=== PATIENT | female | born 1945 | race Caucasian/White ===

== ENCOUNTER 2020-12-07 16:05 | Observation (INO) | payer OTHER, MEDICAID, SELFPAY ==
[~2020-12-07] VITALS: Ht 152.4 cm; Wt 62.6 kg
[2020-12-07 16:06] VITALS: BP_SYST 162
[2020-12-07 17:25] LABS: BASOPHILS # (AUTO) 0.1 K/uL (0.0-0.2); BASOPHILS % (AUTO) 1.4 % (0.0-2.0); EOSINOPHILS # (AUTO) 0.1 K/uL (0.0-0.4); EOSINOPHILS % (AUTO) 2.3 % (0.0-4.0); HEMATOCRIT 39.2 % (36-48); HEMOGLOBIN 12.5 g/dL (12.0-16.0); LYMPHOCYTES # (AUTO) 0.7 K/uL (1.0-5.5); MEAN CORPUSCULAR HEMOGLOBIN 33 pg (27-31); MEAN CORPUSCULAR HGB CONC 32 % (32-36); MEAN CORPUSCULAR VOLUME 104 fL (79.0-98.0); MONOCYTES # (AUTO) 0.4 K/uL (0.0-1.0); NEUTROPHILS # (AUTO) 3.2 K/uL (1.8-7.7); NEUTROPHILS % (AUTO) 71.3 % (40.0-70.0); PLATELET COUNT (AUTO) 140 K/uL (130-430); RED BLOOD CELL COUNT(AUTO) 3.77 MIL/uL (4.2-6.2); RED CELL DISTRIBUTION WIDTH 15.5 % (9.0-15.0); WHITE BLOOD COUNT (AUTO) 4.5 K/uL (4.8-10.8)
[2020-12-07 18:03] LABS: ANION GAP 8 (5-15); CALCIUM 9.2 mg/dL (8.4-11.0); CHLORIDE 107 mmol/L (98-107); CREATININE 0.79 mg/dL (0.55-1.30); GLUCOSE 236 mg/dL (70-99); POTASSIUM 3.9 mmol/L (3.5-5.1); SODIUM SERUM 144 mmol/L (136-145); UREA NITROGEN, BLOOD 14 mg/dL (8-21)
[2020-12-07 18:07] LABS: ALANINE AMINOTRANSFERASE 39 U/L (12-78); ALBUMIN 3.1 g/dL (3.4-4.8); ASPARTATE AMINOTRANSFERASE 45 U/L (10-37); TOTAL BILIRUBIN 0.6 mg/dL (0.0-1.0)
[2020-12-07] MEDS ORDERED: LORazepam 2 MG/ML VIAL IM ONE (18:30)
[2020-12-07] MEDS ORDERED: DIPHENHYDRAMINE INJ 50 MG/ML VIAL IM ONE (18:30)
[2020-12-07] MEDS ORDERED: HALOPERIDOL LACTATE 5 MG/ML VIAL IM ONE (18:30)
[2020-12-08] MEDS ORDERED: LORazepam 2 MG/ML VIAL IVP PRN (10:30)
[2020-12-08 11:19] VITALS: BP_SYST 134
[2020-12-08 11:20] VITALS: BP_SYST 134
[2020-12-08] MEDS ORDERED: HALOPERIDOL LACTATE 5 MG/ML VIAL IM PRN (14:00)
[2020-12-08] MEDS: QUEtiapine FUMARATE 25 MG TABLET PO SCH ×2 (15:00→21:00)
[2020-12-08] MEDS ORDERED: LORazepam 2 MG/ML VIAL IM PRN (16:45)
[2020-12-08] MEDS ORDERED: ACETAMINOPHEN 325 MG TABLET PO PRN (17:45)
[2020-12-08] MEDS ORDERED: ONDANSETRON HCL 4 MG/2 ML VIAL IVP PRN (17:45)
[2020-12-08 18:20] VITALS: BP_SYST 117
[2020-12-08 20:00] VITALS: BP_SYST 126
[2020-12-08] MEDS: NORMAL SALINE 5 ML DISP.SYRIN IVF SCH (22:00)
[2020-12-08] MEDS ORDERED: NORMAL SALINE 5 ML DISP.SYRIN IVF SCH (22:00)
[2020-12-09 00:30] VITALS: BP_SYST 99
[2020-12-09 01:04] VITALS: BP_SYST 116
[2020-12-09 06:56] LABS: BASOPHILS % (AUTO) 0.6 % (0.0-2.0); EOSINOPHILS # (AUTO) 0.2 K/uL (0.0-0.4); EOSINOPHILS % (AUTO) 2.8 % (0.0-4.0); HEMATOCRIT 38.2 % (36-48); HEMOGLOBIN 12.9 g/dL (12.0-16.0); LYMPHOCYTES # (AUTO) 1.1 K/uL (1.0-5.5); MEAN CORPUSCULAR HEMOGLOBIN 35 pg (27-31); MEAN CORPUSCULAR HGB CONC 34 % (32-36); MEAN CORPUSCULAR VOLUME 103 fL (79.0-98.0); MONOCYTES # (AUTO) 0.7 K/uL (0.0-1.0); MONOCYTES % (AUTO) 12.3 % (1.7-9.3); NEUTROPHILS # (AUTO) 3.5 K/uL (1.8-7.7); NEUTROPHILS % (AUTO) 63.3 % (40.0-70.0); PLATELET COUNT (AUTO) 120 K/uL (130-430); RED BLOOD CELL COUNT(AUTO) 3.71 MIL/uL (4.2-6.2); RED CELL DISTRIBUTION WIDTH 15.1 % (9.0-15.0); WHITE BLOOD COUNT (AUTO) 5.4 K/uL (4.8-10.8)
[2020-12-09 07:40] LABS: ANION GAP 8 (5-15); CALCIUM 9.1 mg/dL (8.4-11.0); CHLORIDE 106 mmol/L (98-107); CREATININE 0.83 mg/dL (0.55-1.30); GLUCOSE 88 mg/dL (70-99); SODIUM SERUM 142 mmol/L (136-145); UREA NITROGEN, BLOOD 12 mg/dL (8-21)
[2020-12-09 08:30] VITALS: BP_SYST 148
[2020-12-09] MEDS: QUEtiapine FUMARATE 25 MG TABLET PO SCH ×3 (09:30→22:12)
[2020-12-09 12:00] VITALS: BP_SYST 124
[2020-12-09] MEDS: NORMAL SALINE 5 ML DISP.SYRIN IVF SCH ×2 (14:00→22:00)
[2020-12-09] MEDS ORDERED: FOLI-43 PO (14:03)
[2020-12-09] MEDS ORDERED: PRO40 PO (14:03)
[2020-12-09] MEDS ORDERED: LOSA50TA3 PO (14:03)
[2020-12-09] MEDS ORDERED: ARIP2TAB3 PO ×2 (14:03)
[2020-12-09] MEDS ORDERED: NOR10 PO (14:03)
[2020-12-09] MEDS ORDERED: LEVO25TA2 PO (14:03)
[2020-12-09] MEDS ORDERED: METO25TA3 PO (14:03)
[2020-12-09] MEDS ORDERED: COMMUNICATION ORDER XX ONE (14:15)
[2020-12-09 20:00] VITALS: BP_SYST 115
[2020-12-09] MEDS: RIVASTIGMINE TARTRATE 1.5 MG CAPSULE (EXELON) PO SCH (22:12)
[2020-12-10] VITALS: BP_SYST 99
[2020-12-10] MEDS: NORMAL SALINE 5 ML DISP.SYRIN IVF SCH ×4 (05:27→22:00)
[2020-12-10 08:00] VITALS: BP_SYST 131
[2020-12-10] MEDS: QUEtiapine FUMARATE 25 MG TABLET PO SCH ×3 (08:32→20:31)
[2020-12-10] MEDS: RIVASTIGMINE TARTRATE 1.5 MG CAPSULE (EXELON) PO SCH ×2 (08:32→20:31)
[2020-12-10] MEDS ORDERED: QUET50TA15 PO (14:58)
[2020-12-10 15:22] VITALS: BP_SYST 121
[2020-12-10 16:00] VITALS: BP_SYST 126
[2020-12-10 20:00] VITALS: BP_SYST 112
[2020-12-11 00:43] VITALS: BP_SYST 111
[2020-12-11] MEDS: NORMAL SALINE 5 ML DISP.SYRIN IVF SCH (05:05)
[2020-12-11 08:00] VITALS: BP_SYST 116
[2020-12-11] MEDS: RIVASTIGMINE TARTRATE 1.5 MG CAPSULE (EXELON) PO SCH (08:20)
[2020-12-11] MEDS: QUEtiapine FUMARATE 25 MG TABLET PO SCH (08:20)
[2020-12-11 10:08] VITALS: BP_SYST 116
== END 2020-12-11 11:05 ==
LOC: SED 16:05 → SMU 18:37 → INTOOBSV 18:37 → SMU 12-08 09:57
PROVIDERS: ADMIT Preventive Medicine Preventive Medicine/Occupational Environmental Medicine; ATTEND Preventive Medicine Preventive Medicine/Occupational Environmental Medicine
DX: F29 Unspecified psychosis not due to a substance or known physiological condition (principal); Z20.822 Contact with and (suspected) exposure to COVID-19; F03.91 Unspecified dementia, unspecified severity, with behavioral disturbance; E03.9 Hypothyroidism, unspecified; K21.9 Gastro-esophageal reflux disease without esophagitis; I10 Essential (primary) hypertension; Z78.9 Other specified health status; Z88.2 Allergy status to sulfonamides; Z88.0 Allergy status to penicillin; Z86.16 Personal history of COVID-19; Z79.899 Other long term (current) drug therapy
CPT/HCPCS: 36415 ×2; 80048; 80053; 85025 ×2; 87081; 87426; 96372; 99285; G0378 ×3; J1200; J1630; J2060; U0003

== ENCOUNTER 2021-08-07 13:54 | Emergency (ER) | payer OTHER, MEDICAID, SELFPAY ==
[~2021-08-07] VITALS: Ht 149.9 cm; Wt 54.4 kg
[~2021-08-07 13:54] MED LIST: ARIP2TAB3 PO; FOLI-43 PO; LEVO25TA2 PO; LOSA50TA3 PO; METO25TA3 PO; NOR10 PO; PRO40 PO; QUET50TA15 PO
[2021-08-07 14:00] VITALS: BP_SYST 121
--- NOTE | 2021-08-07 14:00 | NUR ---
Patient to ER bed 5 to gown for evaluation. Side rails up. Report given to Ada.
--- NOTE | 2021-08-07 14:06 | NUR ---
PT DAVID FROM [facility] FOR INCREASED AGITATION. PT AWAKE, ALERT, ORIENTED TO NAME, CONFUSED TO DATE AND PLACE. PT CALM, FOLLOWS SIMPLE COMMANDS, IN NAD. RESP EVEN AND UNLABORED, ON RA @96%. DENIES ANY CHEST PAIN OR SOB. SKIN W/D/I. VERBALIZES SHE'S COLD, BLANKETS PROVIDED. PER HISTORY, PT IS SCHIZOPHRENIC WITH DEMENTIA. MED LIST ON CHART, WAITING FOR DR JAMAAL IRBY.
--- NOTE | 2021-08-07 14:22 | NUR ---
AMALIA CRANE (DAUGHTER/POA) PHONE NUMBER [phone] PER AMALIA PT CAN BE COMBATIVE WHEN SCARED
--- NOTE | 2021-08-07 14:46 | NUR ---
DR HINTON IN ROOM FOR EXAM
[2021-08-07 16:35] LABS: BASOPHILS % (AUTO) 0.5 % (0.0-2.0); EOSINOPHILS # (AUTO) 0.2 K/uL (0.0-0.4); EOSINOPHILS % (AUTO) 4.3 % (0.0-4.0); HEMATOCRIT 34.7 % (36-48); HEMOGLOBIN 11.6 g/dL (12.0-16.0); LYMPHOCYTES # (AUTO) 1.3 K/uL (1.0-5.5); MEAN CORPUSCULAR HEMOGLOBIN 34 pg (27-31); MEAN CORPUSCULAR HGB CONC 34 % (32-36); MEAN CORPUSCULAR VOLUME 102 fL (79.0-98.0); MONOCYTES # (AUTO) 0.5 K/uL (0.0-1.0); MONOCYTES % (AUTO) 11.8 % (1.7-9.3); NEUTROPHILS # (AUTO) 2.2 K/uL (1.8-7.7); NEUTROPHILS % (AUTO) 52.4 % (40.0-70.0); PLATELET COUNT (AUTO) 118 K/uL (130-430); RED BLOOD CELL COUNT(AUTO) 3.41 MIL/uL (4.2-6.2); WHITE BLOOD COUNT (AUTO) 4.1 K/uL (4.8-10.8)
--- NOTE | 2021-08-07 16:38 | NUR ---
WHILE ATTEMPTING TO INSERT AND IN AND OUT CATH,PT GOT AGITATED AND COMBATIVE WITH STAFF. SECURITY CALLED AND DR HINTON INFORMED. ORDERS RECEIEVD,
[2021-08-07] MEDS ORDERED: LORazepam 2 MG/ML VIAL IM ONE (16:45)
--- NOTE | 2021-08-07 16:47 | NUR ---
SECURITY AT BEDSIDE AND WITH COMMUNICATION (LIMIIT SETTING) PT BECAME MORE CALM. WARM BLANKETS GIVEN, PT REPOSITIONED HERSELF AND NOW CALM. ATIVAN HELD AT THIS TIME.
[2021-08-07 16:48] LABS: ANION GAP 4 (5-15); CALCIUM 9.1 mg/dL (8.4-11.0); CHLORIDE 104 mmol/L (98-107); CREATININE 0.79 mg/dL (0.55-1.30); GLUCOSE 263 mg/dL (70-99); POTASSIUM 4.1 mmol/L (3.5-5.1); SODIUM SERUM 139 mmol/L (136-145); UREA NITROGEN, BLOOD 12 mg/dL (8-21)
[2021-08-07 16:59] LABS: ALANINE AMINOTRANSFERASE 36 U/L (12-78); ALBUMIN 2.6 g/dL (3.4-4.8); ASPARTATE AMINOTRANSFERASE 47 U/L (10-37); TOTAL BILIRUBIN 0.6 mg/dL (0.0-1.0)
--- NOTE | 2021-08-07 17:49 | NUR ---
DTR CAME TO VISIT AT BEDSIDE. PLAN OF CARE INFORMED, VERBALIZED UNDERSTANDING. DR HINTON INFORMED TO TALK TO DTR REQUESTED.
[2021-08-07 18:06] LABS: BILIRUBIN,URINE NEGATIVE (NEGATIVE); BLOOD, URINE NEGATIVE (NEGATIVE); CLARITY/URINE CLOUDY (CLEAR); COLOR,URINE YELLOW (YELLOW); GLUCOSE,URINE 2+ (NEGATIVE); KETONES,URINE NEGATIVE (NEGATIVE); LEUKOCYTE ESTERASE ,URINE NEGATIVE (NEGATIVE); NITRITE, URINE NEGATIVE (NEGATIVE); PH,URINE 6.5 (5.0-8.0); PROTEIN URINE NEGATIVE (NEGATIVE)
[2021-08-07 18:12] LABS: BACTERIA,URINE MANY /HPF (None Seen); MUCUS,URINE 1+ /LPF (None Seen); RBC,URINE 0-3 /HPF (0-3)
[2021-08-07] MEDS ORDERED: NITR-85 PO (18:18)
--- NOTE | 2021-08-07 19:09 | NUR ---
REPORT GIVEN TO LEONIDAS RUSS.
[2021-08-07 23:25] VITALS: BP_SYST 161
--- NOTE | 2021-08-07 23:26 | NUR ---
Patient to be transferred to [facility]. Is being transferred due to medical clearance . Receiving facility has accepting physician and available space. ER physician has signed transfer form. Patient or responsible republican has agreed to transfer and signed form. Patient belongings inventoried and will be sent with patient. Copy of nursing notes, lab reports, EKG, Physicians Orders and X-rays to be sent with patient. Report called to PETRONA Hancock at receiving facility. Pt taken via BLS ambulance.
--- NOTE | 2021-08-09 12:30 | NUR ---
RECEIVED LAB TESTING URINE CULTURE WITH SENSITIVITY, PT WAS DISCHARGED TO [facility]. DISCUSSED CASE WITH DR ALEXIS AND CALL PLACED TO [facility] TO VERIFY PT IS STILL A PT THERE. SPOKE WITH [facility] AND FAX NUMBER OBTAINED, AND PAPERWORK FAXED TO [facility] ATTN [facility].
== END 2021-08-07 23:25 ==
LOC: SED 13:54 → SIC 18:40 → UNDOADMIN 18:40 → SED 23:25
DX: N39.0 Urinary tract infection, site not specified (principal); I10 Essential (primary) hypertension; K21.9 Gastro-esophageal reflux disease without esophagitis; E03.9 Hypothyroidism, unspecified; F03.90 Unspecified dementia, unspecified severity, without behavioral disturbance, psychotic disturbance, mood disturbance, and anxiety; Z79.899 Other long term (current) drug therapy; Z88.0 Allergy status to penicillin; Z88.2 Allergy status to sulfonamides; Z88.8 Allergy status to other drugs, medicaments and biological substances; Z20.822 Contact with and (suspected) exposure to COVID-19
CPT/HCPCS: 36415; 70450-TC; 71045; 76376; 80053; 81000; 84484; 85025; 87081; 87086; 93005; 99285

== ENCOUNTER 2021-12-18 15:51 | Emergency (ER) | payer OTHER, MEDICAID ==
[~2021-12-18] VITALS: Ht 162.6 cm; Wt 54.4 kg
[~2021-12-18 15:51] MED LIST changes: +NITR-85 PO
[2021-12-18 16:00] VITALS: BP_SYST 118
[2021-12-18 18:29] LABS: BASOPHILS % (AUTO) 0.4 % (0.0-2.0); EOSINOPHILS # (AUTO) 0.1 K/uL (0.0-0.4); EOSINOPHILS % (AUTO) 1.9 % (0.0-4.0); HEMATOCRIT 37.1 % (36-48); HEMOGLOBIN 12.4 g/dL (12.0-16.0); LYMPHOCYTES # (AUTO) 1.9 K/uL (1.0-5.5); LYMPHOCYTES % (AUTO) 29.4 % (20.5-51.5); MEAN CORPUSCULAR HEMOGLOBIN 32 pg (27-31); MEAN CORPUSCULAR HGB CONC 34 % (32-36); MEAN CORPUSCULAR VOLUME 96 fL (79.0-98.0); MONOCYTES # (AUTO) 0.8 K/uL (0.0-1.0); MONOCYTES % (AUTO) 12.8 % (1.7-9.3); NEUTROPHILS # (AUTO) 3.5 K/uL (1.8-7.7); NEUTROPHILS % (AUTO) 55.5 % (40.0-70.0); RED BLOOD CELL COUNT(AUTO) 3.88 MIL/uL (4.2-6.2); RED CELL DISTRIBUTION WIDTH 14.7 % (9.0-15.0); WHITE BLOOD COUNT (AUTO) 6.4 K/uL (4.8-10.8)
[2021-12-18 18:45] LABS: ACETAMINOPHEN 1 ug/mL (1-30); ALANINE AMINOTRANSFERASE 26 U/L (12-78); ASPARTATE AMINOTRANSFERASE 40 U/L (10-37); CALCIUM 8.3 mg/dL (8.4-11.0); CREATININE 0.94 mg/dL (0.55-1.30); GLUCOSE 157 mg/dL (70-99); TOTAL BILIRUBIN 0.8 mg/dL (0.0-1.0); UREA NITROGEN, BLOOD 13 mg/dL (8-21)
[2021-12-18 18:48] LABS: ALCOHOL, BLOOD < 3 mg/dL (<10); ANION GAP 7 (5-15); CHLORIDE 104 mmol/L (98-107); POTASSIUM 3.7 mmol/L (3.5-5.1); SODIUM SERUM 138 mmol/L (136-145)
[2021-12-18 18:53] LABS: PLATELET COUNT (AUTO) 91 K/uL (130-430)
--- NOTE | 2021-12-18 20:10 | NUR ---
PT TO BE TRANSFERED TO [facility]. RM 58B MD: BLANE TIPTON FROM [facility].
--- NOTE | 2021-12-18 21:00 | NUR ---
MRSA AND COVID SWABS SENT TO LAB.
--- NOTE | 2021-12-18 21:05 | NUR ---
URINE SENT AFTER USING BEDPAN.
[2021-12-18 22:05] LABS: BILIRUBIN,URINE NEGATIVE (NEGATIVE); BLOOD, URINE NEGATIVE (NEGATIVE); COLOR,URINE YELLOW (YELLOW); GLUCOSE,URINE NEGATIVE (NEGATIVE); KETONES,URINE NEGATIVE (NEGATIVE); LEUKOCYTE ESTERASE ,URINE 2+ (NEGATIVE); NITRITE, URINE NEGATIVE (NEGATIVE); PROTEIN URINE NEGATIVE (NEGATIVE)
[2021-12-18 22:19] LABS: BARBITURATE, URINE NEGATIVE (NEG <=200); BENZODIAZEPINE, URINE NEGATIVE (NEG <=150); CANNABINOID, URINE NEGATIVE (NEG <=50); COCAINE, URINE NEGATIVE (NEG <=150); METHAMPHETAMINES SCREEN,URINE NEGATIVE (NEG <=500); OPIATE, URINE NEGATIVE (NEG <=100); PHENCYCLIDINE SCREEN,URINE NEGATIVE (NEG <=25); UR TRICYCLIC ANTIDEPRESSANTS POSITIVE (NEG <=300); URINE AMPHETAMINE NEGATIVE (NEG <=500); URINE METHADONE NEGATIVE (NEG <=200); URINE OXYCODONE SCREEN NEGATIVE (NEG <=100); URINE PROPOXYPHENE SCREEN NEGATIVE (NEG <=300)
[2021-12-18 22:23] LABS: CLARITY/URINE HAZY (CLEAR)
[2021-12-18 22:25] LABS: BACTERIA,URINE MANY /HPF (None Seen); MUCUS,URINE None Seen /LPF (None Seen); RBC,URINE NONE SEEN /HPF (0-3); WBC,URINE 20-50 /HPF (0-3)
[2021-12-18] MEDS ORDERED: NITR-85 PO (22:44)
[2021-12-18] MEDS ORDERED: NITROFURANTOIN MONOHYD/M-CRYST 100 MG CAPSULE (MacroBID) PO ONE (22:45)
[2021-12-18 22:49] VITALS: BP_SYST 120
--- NOTE | 2021-12-18 22:52 | NUR ---
ATTEMPTING TO CALL [facility] FOR REPORT FOR PATIENT TO BE TRANSFERRED
--- NOTE | 2021-12-18 23:04 | NUR ---
REPORT GIVEN TO SEG[facility] GUSTAFSON FOR TRANSFER OF PATIENT. DR. SIMPSON IS ACCEPTING PHYSICIAN. ALL QUESTIONS ANSWERED
--- NOTE | 2021-12-18 23:07 | NUR ---
REPORT GIVEN TO EMS FOR TRANSFER TO [place]. ALL QUESTIONS ANSWERED AND FULL CARE RENDERED TO EMS AGENCY.
== END 2021-12-18 22:45 ==
LOC: SED 15:51
DX: Z04.6 Encounter for general psychiatric examination, requested by authority (principal); K21.9 Gastro-esophageal reflux disease without esophagitis; I10 Essential (primary) hypertension; Z88.0 Allergy status to penicillin; Z88.2 Allergy status to sulfonamides; Z88.5 Allergy status to narcotic agent; Z86.59 Personal history of other mental and behavioral disorders; Z79.899 Other long term (current) drug therapy; Z20.822 Contact with and (suspected) exposure to COVID-19
CPT/HCPCS: 99285; 87426; 80307; 80053; 81000; 85025; 87081; 87086; 36415; 93005; G0482; G0480; G0481; 87186-TC